=== PATIENT | male | born 1960 | race Caucasian/White ===

== ENCOUNTER 2016-09-06 18:01 | Inpatient (IN) | payer OTHER ==
[~2016-09-06] VITALS: Ht 180.3 cm; Wt 87.3 kg
== END 2016-09-08 18:17 | disposition home or self-care (01) | DRG 373 ==
LOC: ER 18:01 → MED 20:52
PROVIDERS: ADMIT Internal Medicine
DX: A04.7 Enterocolitis due to Clostridium difficile (principal); R11.2 Nausea with vomiting, unspecified; R19.5 Other fecal abnormalities; F41.9 Anxiety disorder, unspecified; K58.9 Irritable bowel syndrome, unspecified; J30.2 Other seasonal allergic rhinitis; Z88.8 Allergy status to other drugs, medicaments and biological substances; Z85.828 Personal history of other malignant neoplasm of skin; Z90.49 Acquired absence of other specified parts of digestive tract; Z80.51 Family history of malignant neoplasm of kidney; Z83.3 Family history of diabetes mellitus; Z82.49 Family history of ischemic heart disease and other diseases of the circulatory system; K57.30 Diverticulosis of large intestine without perforation or abscess without bleeding; Z88.1 Allergy status to other antibiotic agents; Z79.899 Other long term (current) drug therapy
CPT/HCPCS: 36415; 74020; 87507; 96361; 96365; 96375

== ENCOUNTER 2016-11-04 02:14 | Emergency (ER) | payer OTHER | END 2016-11-04 04:15 | disposition home or self-care (01) | LOC: ER 02:14 | DX: K57.32 Diverticulitis of large intestine without perforation or abscess without bleeding (principal); Z79.899 Other long term (current) drug therapy; Z88.1 Allergy status to other antibiotic agents | CPT/HCPCS: 36415; 96361; 96374; 96375 ==